=== PATIENT | female | born 2000 | race Caucasian/White ===

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

== ENCOUNTER 2022-02-28 00:22 | Emergency (ER) | payer OTHER ==
[2022-02-28 00:46] LABS: BASOPHIL 0.3 % (0-2); EOSINOPHIL 0.9 % (0-5); HCT 37.1 % (37.0-47.0); HGB 12.7 g/dl (12.5-16.0); LYMPHOCYTE 52.3 % (15-48); MCH 30.2 pg (25.0-31.0); MCHC 34.2 g/dL (32.0-36.0); MCV 88.1 fL (78.0-100.0); MONOCYTE 5.3 % (0-12); MPV 9.9 fL (6.0-9.5); NEUTROPHIL 41.1 % (41-80); NRBC 0; PLT 222 K/uL (150-400); RBC 4.21 M/uL (4.20-5.40); RDW 11.8 % (11.5-14.0); WBC 6.8 K/uL (4.0-10.5)
[2022-02-28 01:12] LABS: ALKALINE PHOSHATASE 83 U/L (46-116); ALT 18 U/L (14-59); AST 14 U/L (15-37); BILIRUBIN - TOTAL 0.6 mg/dL (0.2-1.0); BUN 6 mg/dL (7-18); BUN/CREAT RATIO (CALC) 8.7 RATIO; CHLORIDE 106 mmol/L (98-107); CO2 (BICARBONATE) 24 mmol/L (21-32); CREATININE 0.69 mg/dL (0.51-0.95); GLOBULIN (CALCULATION) 2.9 g/dL; GLUCOSE 111 mg/dL (74-106); POTASSIUM 3.4 mmol/L (3.5-5.1); TOTAL PROTEIN 6.9 g/dL (6.4-8.2)
[2022-02-28 01:23] LABS: CORONAVIRUS 2019 SARS-COV-2 NEGATIVE (NEGATIVE); INFLUENZA A NAA NEGATIVE (NEGATIVE)
[2022-02-28] MEDS ORDERED: PRILOSEC20 MG PO (02:18)
== END 2022-02-28 02:37 | disposition home or self-care (01) ==
LOC: FER 00:22
PROVIDERS: Internal Medicine
DX: R07.89 Other chest pain (principal); Z20.822 Contact with and (suspected) exposure to COVID-19; Z88.5 Allergy status to narcotic agent; Z88.8 Allergy status to other drugs, medicaments and biological substances
CPT/HCPCS: 36415; 71045; 80053; 84145; 84439; 84443; 84484; 85025; 85379; 93005; U0002

== ENCOUNTER 2022-03-17 23:36 | Emergency (ER) | payer OTHER ==
[~2022-03-17 23:36] MED LIST changes: +PRILOSEC20 MG PO
== END 2022-03-18 00:59 | disposition home or self-care (01) ==
LOC: FER 23:36
DX: R07.89 Other chest pain (principal); M94.0 Chondrocostal junction syndrome [Tietze]; F17.200 Nicotine dependence, unspecified, uncomplicated; Z88.8 Allergy status to other drugs, medicaments and biological substances; Z88.6 Allergy status to analgesic agent; Z28.310 Unvaccinated for COVID-19
CPT/HCPCS: 71045; 93005; J1885

== ENCOUNTER 2022-05-21 12:10 | Emergency (ER) | payer OTHER ==
[2022-05-21 17:08] LABS: BASOPHIL 0.4 % (0-2); EOSINOPHIL 0.5 % (0-5); HCT 42.9 % (37.0-47.0); HGB 14.2 g/dl (12.5-16.0); LYMPHOCYTE 32.6 % (15-48); MCH 30.1 pg (25.0-31.0); MCHC 33.1 g/dL (32.0-36.0); MCV 90.9 fL (78.0-100.0); MONOCYTE 5.7 % (0-12); MPV 10.4 fL (6.0-9.5); NEUTROPHIL 60.5 % (41-80); NRBC 0; PLT 257 K/uL (150-400); RBC 4.72 M/uL (4.20-5.40); RDW 12.2 % (11.5-14.0); WBC 7.4 K/uL (4.0-10.5)
[2022-05-21 17:12] LABS: BILIRUBIN NEGATIVE (NEGATIVE); BLOOD NEGATIVE Ery/uL (NEGATIVE); CLARITY CLEAR (CLEAR); COLOR YELLOW (YELLOW); GLUCOSE (U) NORMAL (NORMAL); LEUKOCYTES NEGATIVE Leu/uL (NEGATIVE); NITRITE NEGATIVE (NEGATIVE); PROTEIN NEGATIVE (NEGATIVE); SPECIFIC GRAVITY 1.025 (1.001-1.030); UROBILINOGEN 0.2 mg/dL (0.2-1.0)
[2022-05-21 17:29] LABS: BUN/CREAT RATIO (CALC) 14.8 RATIO; CREATININE 0.61 mg/dL (0.51-0.95); POTASSIUM 4.1 mmol/L (3.5-5.1)
[2022-05-21] MEDS ORDERED: ONDANSETRON HCL4 MG PO (17:45)
== END 2022-05-21 18:15 | disposition home or self-care (01) ==
LOC: FER 12:10
PROVIDERS: Nurse Practitioner Family
DX: N93.8 Other specified abnormal uterine and vaginal bleeding (principal); R11.0 Nausea; F17.210 Nicotine dependence, cigarettes, uncomplicated; Z88.6 Allergy status to analgesic agent; Z88.8 Allergy status to other drugs, medicaments and biological substances; Z28.310 Unvaccinated for COVID-19
CPT/HCPCS: 36415; 80048; 81003; 85025; J2405; J7030